=== PATIENT | female | born 1995 | race African-American/Black ===

== ENCOUNTER 2020-01-10 20:54 | Emergency (ER) | payer OTHER ==
--- NOTE | 2020-01-10 21:07 | ED Physician Documentation ---
PD HPI LOWER EXT INJURY - Stated complaint Stated Complaint: LT KNEE INJ - History obtained from History obtained from: Patient - History of Present Illness PD HPI LOW EXT INJURY LOCATION: Left, Knee Type of injury: Twist (She was running down the court playing basketball and states onset of left knee pain with a forward run. She may have been pivoting slightly. She did feel onset of the knee pain and then it would not support her.). No: Fall, Blunt / blow Timing - onset: How many hours ago (1), Today Timing - duration: Hours (1) Timing - details: Abrupt onset, Still present (painful for weight bearing and fully extending the knee. No locking nor giving out since the injury, nor any knee pains prior to the injury.) Improved by: Rest Worsened by: Moving, Palpating (around medial aspect of patella), Other (extending the lower leg at the knee hurts.) Review of Systems Constitutional: denies: Fever Nose: denies: Rhinorrhea / runny nose, Congestion Throat: denies: Sore throat Respiratory: denies: Cough Skin: denies: Abrasion (s), Laceration (s) Neurologic: denies: Focal weakness, Numbness PD PAST MEDICAL HISTORY - Past Medical History Past Medical History: No - Present Medications Home Medications: Ambulatory Orders Medication Instructions Recorded Confirmed Ibuprofen [Motrin] 600 mg PO TID PRN #25 tab 01/10/20 - Allergies Allergies/Adverse Reactions: Allergies Allergy/AdvReac Type Severity Reaction Status Date / Time No Known Drug Allergies Allergy Verified 01/10/20 21:07 PD ED PE NORMAL - Vitals Vital signs reviewed: Yes - General General: Alert and oriented X 3, No acute distress, Well developed/nourished - Derm Derm: Normal color, Warm and dry - Extremities Extremities: Other (The left knee is tender along the medial aspect of the patella and on the proximal anterior tibial area. She is able to extend at the knee though it hurts. No obvious disruption of the patellar tendon. The MCL area is nontender.Negative pain or laxity on cruciate testing. No effusion.) Results - Vitals Vitals: Vital Signs - 24 hr 01/10/20 01/10/20 21:00 22:42 Temperature 37 C Heart Rate 59 L 66 Respiratory 18 16 Rate Blood Pressure 113/75 120/79 O2 Saturation 98 98 Oxygen O2 Source Room air - Rads (name of study) left knee Radiology: Prelim report reviewed (no fractures), See rad report PD MEDICAL DECISION MAKING - ED course Complexity details: reviewed results, considered differential (Seems likely a strain of the gracillis or sartorius muscles. There may be some strain of the vastus medialis as it does extend to the proximal tibia area and hurts with extension. No obvious cruciate or collateral injury), d/w patient Departure - Departure Disposition: 01 Home, Self Care Clinical Impression: Strain of left knee Qualifiers: Encounter type: initial encounter Qualified Code(s): S86.912A - Strain of unspecified muscle(s) and tendon(s) at lower leg level, left leg, initial encounter Condition: Stable Record reviewed to determine appropriate education?: Yes Instructions: ED Sprain Knee Follow-Up: MARY Kauffman [Provider Group] Prescriptions: Ibuprofen [Motrin] 600 mg PO TID PRN #25 tab PRN Reason: Pain Comments: Knee x-ray is normal. Your exam seems most consistent with muscle strain, and does not feel like a significant ligament injury such as ACL or MCL. I would presume improvement over the next several days and resolved within a week or so. Use the knee brace when up and around for the next several days to week until feeling much better. Crutches initially if needed for pain of weightbearing. Ibuprofen 3 times a day for pain and inflammation. Ice rest and elevate the knee often tonight and tomorrow. Limited duty with the knee brace and crutches as needed for the next several days. Recheck if not improving well in the above-noted timeframe. Forms: Activity restrictions Discharge Date/Time: 01/10/20 22:42
[2020-01-10] MEDS ORDERED: IBUPROFEN 600 MG TABLET PO STA (21:21)
[2020-01-10 22:43] VITALS: BP 120/79
--- NOTE | 2020-01-11 08:55 | XRAY Report ---
PROCEDURE: Knee 3 View LT INDICATIONS: knee injury playing basketball, running at onset TECHNIQUE: 3 views of the left knee(s) were acquired. COMPARISON: None. FINDINGS: Bones: No fractures or dislocations. No suspicious bony lesions. Soft tissues: No joint effusion. No suspicious soft tissue calcifications. IMPRESSION: No fracture. No osseous lesion. If there is continued clinical concern for pathology, th en repeat plain film radiographs (7-10 days) or advanced imaging (CT, MR, bone scan) should be consid ered for further evaluation. Reviewed by: Sisi Archuleta MD, PhD on 01/11/2020 8:54 AM PDT Approved by: Sisi Archuleta MD, PhD on 01/11/2020 8:54 AM PDT Station ID: [id number]
== END 2020-01-10 22:42 | disposition home or self-care (01) ==
LOC: ED 20:54
DX: S86.912A Strain of unspecified muscle(s) and tendon(s) at lower leg level, left leg, initial encounter (principal); X50.1XXA Overexertion from prolonged static or awkward postures, initial encounter; Y93.67 Activity, basketball; Y92.310 Basketball court as the place of occurrence of the external cause
CPT/HCPCS: 73562; 99283; A9270